=== PATIENT | female | born 1990 | race Asian ===

== ENCOUNTER 2018-08-20 12:09 | Inpatient (IN) ==
[2018-08-20] MEDS ORDERED: Sodium Chlor 0.9% Inj 500 ML IV.SIG PRN (12:44)
[2018-08-20] MEDS ORDERED: Sod Chloride 0.9% Inj 1,000 ML IV.CONT PRN (12:44)
[2018-08-20] MEDS ORDERED: Oxytocin 30 Units/500ml Premix 30 UNITS/500 ML BAG IV.SIG ONE (12:44)
[2018-08-20] MEDS ORDERED: fentaNYL Citrate Inj 100 MCG/2 ML Ampul IV.PUSH PRN ×2 (12:44)
[2018-08-20] MEDS ORDERED: Naloxone Inj 0.4 MG/ML Vial IV.PUSH PRN ×2 (12:44→15:00)
[2018-08-20] MEDS ORDERED: Citric Acid/Sodium Citrate Liq 30 ML UDC PO SCH (12:45)
--- NOTE | 2018-08-20 12:51 | P.HPOB ---
Admission note :history and physical Patient Name: Ying Doe Date of : 89 Patient Status: Emergency Emergency Provider: Lyudmila Guzman Date: 08/20/18 12:44 Initialization Date: 08/20/18 12:44 History of Present Illness Primary Care Physician: Dr. Andersen- Dr. Goode covering Chief Complaint: Leakage of fluid History of Present Illness: 28-year-old at 39 weeks presents complaining of leakage of fluid this morning GBS status negative. care uneventful. Patient also complains of regular contractions. Weeks Gestation:: 39 Para: 0 : 1 Review of Systems All other systems reviewed negative except as stated in HPI Medications and Allergies Allergies Allergy/AdvReac Type Severity Reaction Status Date / Time No Known Allergies Allergy Verified 08/20/18 12:42 Exam Vital signs: Vital Signs 08/20/18 12:37 08/20/18 12:38 Temperature 97.6 F Pulse Rate 67 Respiratory Rate 18 Blood Pressure 124/67 - Constitutional moderate distress - Routine HEENT Exam Head: Present: normocephalic ENT: Present: mucous membranes moist - Routine Neck Exam Present: supple - Routine Chest/Breast/Axilla Exam Chest wall: Absent: tenderness - Routine Respiratory Exam Absent: accessory muscle use - Routine Cardiovascular Exam Present: RRR - Routine Abdominal Exam Present: soft (Gravid regular contractions palpated every 1-2 minutes heart rate category 1) - Routine Exam Comments: Cervix anterior lip 100% effaced 0-+1 station - Routine Extremities Exam Absent: cyanosis - Routine Skin Exam Present: intact - Routine Neurological Exam Present: alert, oriented X3 Assessment and Plan - Diagnosis (1) Active labor at term Status: Acute (2) Leakage, amniotic fluid Code(s): O42.90 - Premature rupture of membranes, unspecified as to length of time between rupture and onset of labor, unspecified weeks of gestation Status : Acute (3) 39 weeks gestation of Code(s): Z3A.39 - 39 weeks gestation of Status: Acute - Plan Active labor admit covering provider contacted in route Discharge Plan - Physicians Team ED Provider: Lyudmila Guzman Primary Care Provider: Primary Care Beth Ramirez
[2018-08-20 12:58] LABS: Baso % (Auto) 0.3 % (0.0-2.0); Eos % (Auto) 0.1 % (0.0-4.0); Hematocrit 34.5 % (35.0-46.0); Hemoglobin 12.3 gm/dL (11.6-15.3); Lymph # (Auto) 1.5 th/mm3 (1.0-4.8); Lymph % (Auto) 10.1 % (9.0-44.0); Mean Corpuscular HGB Conc 35.8 % (32.0-36.0); Mean Corpuscular Hemoglobin 30.8 pg (27.0-34.0); Mean Corpuscular Volume 86.2 fL (80.0-100.0); Mean Platelet Volume 7.6 fL (7.0-11.0); Mono # (Auto) 0.9 th/mm3 (0.0-0.9); Neut # (Auto) 12.7 th/mm3 (1.8-7.7); Neut % (Auto) 83.5 % (16.0-70.0); Platelet Count 263 th/mm3 (150-450); Red Blood Count 4.01 mil/mm3 (4.00-5.30); Red Cell Distribution Width 14.7 % (11.6-17.2); White Blood Count 15.2 th/mm3 (4.0-11.0)
[2018-08-20] MEDS ORDERED: fentaNYL 2MCG-Bupiv 0.125% Epi 150 ML EPIDURAL ONE (13:21)
[2018-08-20 13:30] LABS: Amphetamine Urine With Conf Neg (Neg); Benzodiazepine Urine With Conf Neg (Neg); Cocaine Urine With Conf Neg (Neg); Opiates Urine With Conf Neg (Neg)
[2018-08-20 13:31] LABS: Cannabinoid Urine With Conf Neg (Neg)
--- NOTE | 2018-08-20 13:40 | P.OBGPN ---
To bedside to evaluate pt. Remains with thin rim of cervical tissue on SVE, 0 station. Able to sit still, strongly desires epidural. OK for epidural, anesthesia notified, will anticipate after epidural placed.
[2018-08-20] MEDS ORDERED: Lidocaine 1% Inj 50 ML Vial ONE (14:45)
[2018-08-20] MEDS ORDERED: Acetaminophen 325 MG Tablet PO PRN (15:00)
[2018-08-20] MEDS ORDERED: Oxytocin 30 Units/500ml Premix 30 UNITS/500 ML BAG IV.CONT PRN (15:00)
[2018-08-20] MEDS ORDERED: Bisacodyl 10 MG Supp RECTAL PRN (15:00)
[2018-08-20] MEDS ORDERED: Benzocaine 20% Top Spray 60 ML Can TOPICAL PRN (15:00)
[2018-08-20] MEDS ORDERED: Witch Hazel 50%/Glyderin 12.5% 40 Pad Jar RECTAL PRN (15:00)
--- NOTE | 2018-08-20 15:03 | P.OBDELI ---
Weeks Gestation: 39 Patient Started Active Labor: Yes Medical Induction of Labor: No Artificial Rupture of Membrane: No Anesthesia: Epidural Episiotomy: none Vaginal Delivery: Normal Presentation: Occiput anterior, Compound (left hand) Nuchal Cord: None Delayed Cord Clamping (45 sec): Yes Placenta: Spontaneous delivery, Intact, 3 vessel cord Laceration: Perineal, 2 deg Repair: Chromic running Estimated blood loss (mL): 200 : Male Male A Delivery Date: 08/20/18 Delivery Time: 14:44 score (1 min): 9 score (5 min): 9
[2018-08-20] MEDS ORDERED: Measles/Mumps/Rubella Vaccine Inj 0.5 ML Vial SQ ONE (16:00)
[2018-08-20] MEDS ORDERED: Diphtheria/Tetanus/Pertussis Vaccine Inj 0.5 ML Syringe IM ONE (16:00)
[2018-08-20] MEDS ORDERED: Zolpidem Tartrate 5 MG Tablet PO PRN (21:00)
[2018-08-20] MEDS: Senna/Docusate Sodium 8.6/50 MG Tablet PO SCH (21:40)
--- NOTE | 2018-08-21 07:57 | P.PNOB ---
Subjective Post day: 1 Interval history: doing well, no complaints, Objective Vital Signs/I&O: Vital Signs 08/20/18 12:37 08/20/18 12:38 08/20/18 13:35 Temperature 97.6 F Pulse Rate 67 93 H Respiratory Rate 18 Blood Pressure 124/67 121/80 08/20/18 13:40 08/20/18 13:45 08/20/18 15:00 Temperature 98.6 F Pulse Rate 80 80 Respiratory Rate 18 Blood Pressure 120/62 113/59 L 08/20/18 15:01 08/20/18 15:15 08/20/18 15:22 Temperature Pulse Rate 83 53 L Respiratory Rate 17 Blood Pressure 117/73 140/93 H 08/20/18 15:45 08/20/18 16:01 08/20/18 16:15 Temperature Pulse Rate 89 113 H 96 H Respiratory Rate 18 Blood Pressure 123/67 123/70 95/57 L 08/20/18 17:05 08/20/18 21:00 08/21/18 01:00 Temperature 98.0 F 99.0 F 99.2 F Pulse Rate 74 80 78 Respiratory Rate 20 16 16 Blood Pressure 106/68 107/57 L 94/52 L Result Diagrams: 08/20/18 12:49 Objective Remarks: GENERAL: Well-nourished, well-developed patient. CARDIOVASCULAR: Regular rate and rhythm without murmurs, gallops, or rubs. RESPIRATORY: Breath sounds equal bilaterally. No accessory muscle use. ABDOMEN/GI: Abdomen soft, non-tender. Fundus: Firm, non-tender at umbilicus. GENITOURINARY: Light to moderate bleeding. EXTREMITIES: No cyanosis or edema, non-tender, without signs of DVT. Medications and IVs: Active Medications Acetaminophen (Tylenol) 650 mg PO Q4H PRN PRN Reason: PAIN SCALE 1 TO 2 Al Hydroxide/Mg Hydroxide (Milk Of Magnesia Liq) 30 ml PO Q12H PRN PRN Reason: Mild Constipation Benzocaine (Americaine 20% Top [place]) 1 spray TOPICAL Q4H PRN PRN Reason: For Perineum Discomfort Last Admin: 08/20/18 18:08 Dose: 1 spray Bisacodyl (Dulcolax Supp) 10 mg RECTAL DAILY PRN PRN Reason: SEVERE CONSITIPATION Oxytocin (Pitocin 30 Units/Ns 500 Ml Premix) 30 units in 500 mls @ 100 mls/hr IV.CONT UNSCH PRN PRN Reason: Heavy bleeding Ibuprofen (Motrin) 800 mg PO Q8H PRN PRN Reason: For Cramping Last Admin: 08/21/18 04:53 Dose: 800 mg Lactulose (Lactulose Liq) 30 ml PO DAILY PRN PRN Reason: SEVERE CONSITIPATION Lidocaine HCl (Xylocaine 1% Inj) 10 ml INFILTRATN PRN PRN PRN Reason: For episiotomy repair Stop: 08/22/18 12:43 Naloxone HCl (Narcan Inj) 0.1 mg IV.PUSH Q2M PRN PRN Reason: for opiate reversal Ondansetron HCl (Zofran Odt) 4 mg PO Q6H PRN PRN Reason: NAUSEA OR VOMITING Oxycodone/Acetaminophen (Percocet 5/325 Mg) 1 tab PO Q4H PRN PRN Reason: PAIN SCALE 3 TO 5 Last Admin: 08/20/18 21:54 Dose: 1 tab Oxycodone/Acetaminophen (Percocet 5/325 Mg) 2 tab PO Q4H PRN PRN Reason: PAIN SCALE 6 TO 10 Vit/Calcium/Iron/Folic Ac (Stuartnatal Plus 3) 1 tab PO DAILY ON LICENSE OF [facility] Senna/Docusate Sodium (Katarzyna-Colace) 1 tab PO BID ON LICENSE OF [facility] Last Admin: 08/20/18 21:40 Dose: 1 tab Sennosides (Senokot) 17.2 mg PO Q12H PRN PRN Reason: Moderate Constipation Sodium Chloride (Ns Flush) 2 ml IV.FLUSH BID ON LICENSE OF [facility] Last Admin: 08/20/18 21:49 Dose: 2 ml Sodium Chloride (Ns Flush) 2 ml IV.FLUSH PRN PRN PRN Reason: FLUSH AFTER USING IV ACCESS Witch Rebecca/Glycerin (Tucks Pads) 1 applicatio RECTAL QID PRN PRN Reason: HEMORRHOIDS Last Admin: 08/20/18 18:08 Dose: 1 applicatio Zolpidem Tartrate (Ambien) 5 mg PO HS PRN PRN Reason: SLEEP Assessment and Plan - Diagnosis (1) Vaginal delivery Code(s): O80 - Encounter for full-term uncomplicated delivery Status: Acute (2) 39 weeks gestation of Code(s): Z3A.39 - 39 weeks gestation of Status: Acute - Plan PPD #1 s/p doing well, routine PP care, not 24 hrs yet wants circ but no receipt Discharge Planning: routine PPD 2 - Attending Attestation pt seen by me
[2018-08-21] MEDS: Senna/Docusate Sodium 8.6/50 MG Tablet PO SCH ×2 (08:21→20:41)
[2018-08-21] MEDS: Prenatal Vit/Ca/Iron/Folic Acid Tablet PO SCH (10:10)
--- NOTE | 2018-08-22 06:13 | P.PNOB ---
Subjective Post day: 2 Interval history: nursing well cramps largely resolved very fatigued but in good spirits Objective Vital Signs/I&O: Vital Signs 08/21/18 08:00 08/21/18 20:00 Temperature 97.7 F 98.3 F Pulse Rate 78 78 Respiratory Rate 16 18 Blood Pressure 116/69 109/71 Result Diagrams: 08/20/18 12:49 Objective Remarks: GENERAL: Well-nourished, well-developed patient. CARDIOVASCULAR: Regular rate and rhythm without murmurs, gallops, or rubs. RESPIRATORY: Breath sounds equal bilaterally. No accessory muscle use. ABDOMEN/GI: Abdomen soft, non-tender. Fundus: Firm, non-tender at umbilicus. GENITOURINARY: Light to moderate bleeding. EXTREMITIES: No cyanosis or edema, non-tender, without signs of DVT. Medications and IVs: Active Medications Acetaminophen (Tylenol) 650 mg PO Q4H PRN PRN Reason: PAIN SCALE 1 TO 2 Last Admin: 08/21/18 08:20 Dose: 650 mg Al Hydroxide/Mg Hydroxide (Milk Of Magnesia Liq) 30 ml PO Q12H PRN PRN Reason: Mild Constipation Benzocaine (Americaine 20% Top [place]) 1 spray TOPICAL Q4H PRN PRN Reason: For Perineum Discomfort Last Admin: 08/20/18 18:08 Dose: 1 spray Bisacodyl (Dulcolax Supp) 10 mg RECTAL DAILY PRN PRN Reason: SEVERE CONSITIPATION Oxytocin (Pitocin 30 Units/Ns 500 Ml Premix) 30 units in 500 mls @ 100 mls/hr IV.CONT UNSCH PRN PRN Reason: Heavy bleeding Ibuprofen (Motrin) 800 mg PO Q8H PRN PRN Reason: For Cramping Last Admin: 08/22/18 00:11 Dose: 800 mg Lactulose (Lactulose Liq) 30 ml PO DAILY PRN PRN Reason: SEVERE CONSITIPATION Lidocaine HCl (Xylocaine 1% Inj) 10 ml INFILTRATN PRN PRN PRN Reason: For episiotomy repair Stop: 08/22/18 12:43 Naloxone HCl (Narcan Inj) 0.1 mg IV.PUSH Q2M PRN PRN Reason: for opiate reversal Ondansetron HCl (Zofran Odt) 4 mg PO Q6H PRN PRN Reason: NAUSEA OR VOMITING Oxycodone/Acetaminophen (Percocet 5/325 Mg) 1 tab PO Q4H PRN PRN Reason: PAIN SCALE 3 TO 5 Last Admin: 08/20/18 21:54 Dose: 1 tab Oxycodone/Acetaminophen (Percocet 5/325 Mg) 2 tab PO Q4H PRN PRN Reason: PAIN SCALE 6 TO 10 Last Admin: 08/22/18 04:11 Dose: 2 tab Vit/Calcium/Iron/Folic Ac (Stuartnatal Plus 3) 1 tab PO DAILY [facility] Last Admin: 08/21/18 10:10 Dose: Not Given Senna/Docusate Sodium (Katarzyna-Colace) 1 tab PO BID [facility] Last Admin: 08/21/18 20:41 Dose: 1 tab Sennosides (Senokot) 17.2 mg PO Q12H PRN PRN Reason: Moderate Constipation Sodium Chloride (Ns Flush) 2 ml IV.FLUSH BID [facility] Last Admin: 08/21/18 20:59 Dose: Not Given Sodium Chloride (Ns Flush) 2 ml IV.FLUSH PRN PRN PRN Reason: FLUSH AFTER USING IV ACCESS Witch Rebecca/Glycerin (Tucks Pads) 1 applicatio RECTAL QID PRN PRN Reason: HEMORRHOIDS Last Admin: 08/20/18 18:08 Dose: 1 applicatio Zolpidem Tartrate (Ambien) 5 mg PO HS PRN PRN Reason: SLEEP Assessment and Plan - Diagnosis (1) Vaginal delivery Code(s): O80 - Encounter for full-term uncomplicated delivery Status: Acute (2) 39 weeks gestation of Code(s): Z3A.39 - 39 weeks gestation of Status: Acute - Plan PPD #1 s/p doing well, routine PP care, not 24 hrs yet wants circ but no receipt PPD 2 08/22/18 0600 Up and nursing. doing well reviewed expectations can go home today RTO 2 weeks Discharge Planning: routine PPD 2
[2018-08-22] MEDS: Prenatal Vit/Ca/Iron/Folic Acid Tablet PO SCH (09:35)
[2018-08-22] MEDS: Senna/Docusate Sodium 8.6/50 MG Tablet PO SCH (09:39)
== END 2018-08-22 14:04 | disposition home or self-care (01) ==
LOC: HOBED 12:09 → H2E 12:48 → H1EA 16:39
PROVIDERS: ADMIT Obstetrics & Gynecology; ATTEND Obstetrics & Gynecology